=== PATIENT | male | born 1975 | race Two or more races ===

== ENCOUNTER 2016-07-09 18:36 | Emergency (ER) | payer MEDICAID ==
[~2016-07-09] VITALS: Ht 172.7 cm; Wt 101.6 kg
[2016-07-09 19:11] LABS: Basophils # (auto) 0.1 uL; Basophils % (auto) 0.9 % (0.0-2.0); Eosinophils # (auto) 0.3 uL; Eosinophils % (auto) 3.1 % (0.0-7.0); Hematocrit 45.7 % (41.0-53.0); Hemoglobin 15.6 g/dL (13.5-17.5); Lymphocytes # (auto) 2.4 uL; Lymphocytes % (auto) 22.5 % (10.0-50.0); Mean Corpuscular Hgb Conc. 34.1 g/dL (32.0-36.0); Mean Platelet Volume 8.1 fL (7.4-10.4); Monocytes % (auto) 9.2 % (0.0-12.0); Neutrophils # (auto) 6.9 uL; Neutrophils % (auto) 64.3 % (37.0-80.0); Platelet Count (auto) 298 10^3/uL (140-450); Red Cell Distribution Width 12.7 % (11.6-16.0); White Blood Cell 10.8 10^3/uL (4.4-10.8)
[2016-07-09 19:23] LABS: Albumin 3.8 g/dL (3.4-5.0); BUN/Creatinine Ratio 7.5; Calcium 8.5 mg/dL (8.5-10.1); Potassium 3.7 mmol/L (3.5-5.1)
[2016-07-09 19:27] LABS: Bilirubin, Total 0.2 mg/dL (0.2-1.0)
[2016-07-09 23:48] VITALS: BP 118/78
[2016-07-10 00:05] LABS: INR 0.98 (0.9-1.15); Partial Thromboplastin Time 29.1 sec (22.64-33.71); Prothrombin Time 10.1 sec (9.37-12.3)
[2016-07-10 00:12] LABS: Magnesium 2.6 mg/dL (1.6-2.6)
[2016-07-10 00:17] LABS: B-Type Natriuretic Peptide 5.42 pg/mL (0-100)
[2016-07-10 00:31] LABS: Temperature: 22.5 C (20.0-25.0)
== END 2016-07-10 01:55 | disposition home or self-care (01) ==
LOC: ER 18:38
DX: B34.9 Viral infection, unspecified (principal); R53.1 Weakness; R42 Dizziness and giddiness
CPT/HCPCS: 36415; 70450; 71010; 80053; 83735; 83880; 84484; 85025; 85610; 85730; 94761

== ENCOUNTER 2019-09-15 10:09 | Emergency (ER) | payer MEDICAID ==
[~2019-09-15] VITALS: Ht 172.7 cm; Wt 108.9 kg
[2019-09-15 10:24] VITALS: BP 152/90
[2019-09-15 10:36] LABS: Basophils # (auto) 0.1 10 ^3/uL (0-0.2); Eosinophils # (auto) 0.1 10 ^3/uL (0-0.8); Eosinophils % (auto) 0.9 % (0.0-7.0); Hematocrit 45.2 % (41.0-53.0); Hemoglobin 15.5 g/dL (13.5-17.5); Lymphocytes # (auto) 1.1 10 ^3/uL (0.4-5.4); Lymphocytes % (auto) 11.8 % (10.0-50.0); Mean Corpuscular Hemoglobin 29.9 pg (28.0-32.0); Mean Corpuscular Hgb Conc. 34.2 g/dL (32.0-36.0); Mean Corpuscular Volume 87.2 fL (80.0-100.0); Monocytes # (auto) 0.6 10 ^3/uL (0-1.3); Monocytes % (auto) 6.2 % (0.0-12.0); Neutrophils # (auto) 7.8 10 ^3/uL (1.6-8.6); Neutrophils % (auto) 80.1 % (37.0-80.0); Nucleated Red Blood Cells % 0.1 %; Platelet Count (auto) 272 10^3/uL (140-450); Red Blood Cells 5.18 10^6/uL (4.5-5.90); Red Cell Distribution Width 13.7 % (11.8-14.3); White Blood Cell 9.7 10^3/uL (4.4-10.8)
[2019-09-15 10:51] LABS: Albumin 4.5 g/dL (3.4-5.0); Anion Gap 8 (5-15); Blood Urea Nitrogen 11 mg/dL (7-18); Calcium 8.4 mg/dL (8.5-10.1); Carbon Dioxide 29 mmol/L (21-32); Chloride 87 mmol/L (98-107); Glucose 118 mg/dL (74-106); Magnesium 2.7 mg/dL (1.6-2.6); Sodium 124 mmol/L (136-145)
[2019-09-15 10:56] LABS: Alanine Aminotransferase 55 U/L (16-61); Alkaline Phosphatase 93 U/L (45-117); Aspartate Aminotransferase 59 U/L (15-37); BUN/Creatinine Ratio 7.7; Bilirubin, Total 0.5 mg/dL (0.2-1.0); GFR African American 69 mL/min; GFR Non-African American 57 mL/min; Total Protein 9.1 g/dL (6.4-8.2)
== END 2019-09-15 11:48 | disposition home or self-care (01) ==
LOC: ER 10:09
DX: E03.9 Hypothyroidism, unspecified (principal); R53.1 Weakness; R10.9 Unspecified abdominal pain
CPT/HCPCS: 36415; 70450; 71046; 80053; 83735; 84443; 84484; 85025; 93005

== ENCOUNTER 2020-09-29 17:36 | Emergency (ER) | payer MEDICAID ==
[~2020-09-29] VITALS: Ht 172.7 cm; Wt 108.9 kg
[2020-09-29 17:37] VITALS: BP 169/86
[2020-09-29 18:38] LABS: Basophils # (auto) 0.1 10 ^3/uL (0-0.2); Basophils % (auto) 0.9 % (0.0-2.0); Eosinophils # (auto) 0.3 10 ^3/uL (0-0.8); Eosinophils % (auto) 2.2 % (0.0-7.0); Hematocrit 44.4 % (41.0-53.0); Hemoglobin 15.6 g/dL (13.5-17.5); Lymphocytes # (auto) 1.6 10 ^3/uL (0.4-5.4); Lymphocytes % (auto) 12.6 % (10.0-50.0); Mean Corpuscular Hemoglobin 29.9 pg (28.0-32.0); Mean Corpuscular Hgb Conc. 35.1 g/dL (32.0-36.0); Mean Corpuscular Volume 85.2 fL (80.0-100.0); Monocytes % (auto) 7.7 % (0.0-12.0); Neutrophils # (auto) 9.6 10 ^3/uL (1.6-8.6); Neutrophils % (auto) 76.6 % (37.0-80.0); Nucleated Red Blood Cells % 0.2 %; Platelet Count (auto) 251 10^3/uL (140-450); Red Blood Cells 5.21 10^6/uL (4.5-5.90); Red Cell Distribution Width 13.5 % (11.8-14.3); White Blood Cell 12.5 10^3/uL (4.4-10.8)
[2020-09-29 18:54] LABS: Albumin 3.7 g/dL (3.4-5.0); Anion Gap 9 (5-15); BUN/Creatinine Ratio 8.7; Blood Urea Nitrogen 8 mg/dL (7-18); Calcium 8.4 mg/dL (8.5-10.1); Carbon Dioxide 26 mmol/L (21-32); Chloride 102 mmol/L (98-107); GFR African American 114 mL/min; GFR Non-African American 95 mL/min; Glucose 105 mg/dL (74-106); Potassium 3.2 mmol/L (3.5-5.1); Sodium 137 mmol/L (136-145)
[2020-09-29 19:03] LABS: Alanine Aminotransferase 29 U/L (16-61); Alkaline Phosphatase 83 U/L (45-117); Aspartate Aminotransferase 19 U/L (15-37); Bilirubin, Total 0.3 mg/dL (0.2-1.0); Total Protein 7.8 g/dL (6.4-8.2)
== END 2020-09-29 19:30 | disposition left against medical advice (07) ==
LOC: ER 17:38
DX: R07.89 Other chest pain (principal); Z53.21 Procedure and treatment not carried out due to patient leaving prior to being seen by health care provider
CPT/HCPCS: 36415; 71046; 80053; 84484; 85025; 93005

== ENCOUNTER 2023-10-08 09:09 | Inpatient (IN) | payer MEDICAID ==
[~2023-10-08] VITALS: Ht 167.6 cm; Wt 98.5 kg
[2023-10-08 09:36] LABS: Basophils # (auto) 0 10 ^3/uL (0-0.2); Basophils % (auto) 0.4 % (0.0-2.0); Eosinophils # (auto) 0.2 10 ^3/uL (0-0.8); Eosinophils % (auto) 1.9 % (0.0-7.0); Hematocrit 44.3 % (41.0-53.0); Lymphocytes # (auto) 1.4 10 ^3/uL (0.4-5.4); Lymphocytes % (auto) 13.8 % (10.0-50.0); Mean Corpuscular Hemoglobin 29.8 pg (28.0-32.0); Mean Corpuscular Hgb Conc. 33.8 g/dL (32.0-36.0); Monocytes # (auto) 0.8 10 ^3/uL (0-1.3); Monocytes % (auto) 8.1 % (0.0-12.0); Neutrophils # (auto) 7.7 10 ^3/uL (1.6-8.6); Neutrophils % (auto) 75.8 % (37.0-80.0); Red Blood Cells 5.04 10^6/uL (4.5-5.90); Red Cell Distribution Width 13.2 % (11.8-14.3); White Blood Cell 10.2 10^3/uL (4.4-10.8)
[2023-10-08 09:51] LABS: INR 0.94 (0.9-1.15); Partial Thromboplastin Time 26.4 SEC (24.5-34.5)
[2023-10-08 09:53] LABS: Alanine Aminotransferase 65 U/L (7-40); Albumin 4.3 g/dL (3.2-4.8); Alkaline Phosphatase 89 U/L (46-116); Anion Gap 6 (5-15); Aspartate Aminotransferase 84 U/L (13-40); BUN/Creatinine Ratio 18.1 (10.0-20.0); Bilirubin, Total 0.3 mg/dL (0.2-1.0); Blood Urea Nitrogen 17 mg/dL (9-23); Carbon Dioxide 27 mmol/L (20-30); Chloride 109 mmol/L (98-107); Glucose 121 mg/dL (74-106); Potassium 3.8 mmol/L (3.5-5.1); Sodium 142 mmol/L (136-145)
[2023-10-08] MEDS: NITROGLYCERIN 0.4 MG SL TAB SL ONE (10:29)
[2023-10-08] MEDS: ASPirin 325 MG TAB PO ONE (10:37)
[2023-10-08 10:40] LABS: Urine Bacteria None Seen /hpf (None Seen)
[2023-10-08 10:56] LABS: Urine Blood 1+ /uL (Negative); Urine Clarity Clear (Clear); Urine Color Yellow (Yellow); Urine Mucus FEW (None Seen); Urine Protein, UAD Negative (Negative); Urine Urobilinogen Normal (Negative); Urine WBC 1 /hpf (0 - 3)
[2023-10-08 11:53] LABS: Amphetamine Screen, Urine Neg (NEGATIVE)
[2023-10-08 11:54] LABS: Barbiturate Scree,Urine Neg (NEGATIVE); Benzodiazephine Screen, Urine Neg (NEGATIVE); Cannabinoid Screen, Urine Neg (NEGATIVE); Cocaine Screen, Urine Neg (NEGATIVE); Opiate Scree,Urine Neg (NEGATIVE); Phencyclidine Screen, Urine Neg (NEGATIVE)
[2023-10-08] MEDS ORDERED: NITROGLYCERIN 0.4 MG SL TAB SL PRN (12:45)
[2023-10-08] MEDS ORDERED: HYDROcodone-ACET 5/325MG TAB PO PRN (12:45)
[2023-10-08] MEDS ORDERED: ACETAMINOPHEN 325 MG TAB PO PRN ×2 (12:45)
[2023-10-08] MEDS ORDERED: hydrALAZINE HCL 20 MG/ML VL IV PRN (12:45)
[2023-10-08] MEDS ORDERED: MORPHINE SULFATE INJ 2 MG/ml SYRG IV PRN ×2 (12:45)
[2023-10-08] MEDS ORDERED: ONDANSETRON HCL 4 MG/2 ML VIAL IV PRN (12:45)
[2023-10-08] MEDS ORDERED: CARB200T4 PO (12:55)
[2023-10-08] MEDS ORDERED: LEVO75TA6 PO (12:55)
[2023-10-08 13:25] LABS: Triglycerides 97 mg/dL (< 150)
[2023-10-08 13:26] LABS: LDL Cholesterol 120 mg/dL (< 100)
[2023-10-08 13:27] LABS: Cholesterol 190 mg/dL (< 200); HDL Cholesterol 54 mg/dL (40-59)
[2023-10-08] MEDS ORDERED: LORazepam 2MG/ML-1ML VIAL IV PRN (15:30)
[2023-10-08 17:21] VITALS: BP 126/77; PULSE 78; PULSE 90; RESP 16; RESP 18; TEMP 98; O2SAT 96; O2SAT 98
[2023-10-08 17:31] VITALS: BP 126/77; PULSE 90; RESP 16; TEMP 98; O2SAT 96
[2023-10-08] MEDS ORDERED: LORA-483 PO (17:40)
[2023-10-08] MEDS ORDERED: LEVO200T7 PO (17:40)
[2023-10-08 20:00] VITALS: PULSE 84; RESP 16; O2SAT 96
[2023-10-08 21:00] VITALS: BP 137/72; PULSE 84; RESP 16; TEMP 98.1; O2SAT 96
[2023-10-08] MEDS: ATORVASTATIN 20 MG TAB PO SCH (21:23)
[2023-10-08] MEDS ORDERED: carBAMazepine 200 MG TAB PO SCH (22:00)
[2023-10-09 05:00] VITALS: BP 114/67; PULSE 73; RESP 16; TEMP 98.2; O2SAT 99
[2023-10-09 06:37] LABS: Basophils # (auto) 0 10 ^3/uL (0-0.2); Basophils % (auto) 0.6 % (0.0-2.0); Eosinophils # (auto) 0.3 10 ^3/uL (0-0.8); Eosinophils % (auto) 3.7 % (0.0-7.0); Hematocrit 43.3 % (41.0-53.0); Hemoglobin 14.6 g/dL (13.5-17.5); Lymphocytes # (auto) 1.5 10 ^3/uL (0.4-5.4); Lymphocytes % (auto) 18.2 % (10.0-50.0); Mean Corpuscular Hemoglobin 29.5 pg (28.0-32.0); Mean Corpuscular Hgb Conc. 33.7 g/dL (32.0-36.0); Mean Corpuscular Volume 87.6 fL (80.0-100.0); Monocytes # (auto) 0.8 10 ^3/uL (0-1.3); Monocytes % (auto) 10.4 % (0.0-12.0); Neutrophils # (auto) 5.3 10 ^3/uL (1.6-8.6); Neutrophils % (auto) 67.1 % (37.0-80.0); Nucleated Red Blood Cells % 0.1 %; Red Blood Cells 4.94 10^6/uL (4.5-5.90); Red Cell Distribution Width 13.3 % (11.8-14.3)
[2023-10-09 06:59] LABS: Alanine Aminotransferase 87 U/L (7-40); Albumin 4.1 g/dL (3.2-4.8); Alkaline Phosphatase 84 U/L (46-116); Anion Gap 6 (5-15); Aspartate Aminotransferase 50 U/L (13-40); Bilirubin, Total 0.5 mg/dL (0.2-1.0); Blood Urea Nitrogen 11 mg/dL (9-23); Calcium 9.3 mg/dL (8.5-10.1); Carbon Dioxide 28 mmol/L (20-30); Chloride 106 mmol/L (98-107); Glucose 105 mg/dL (74-106); Sodium 140 mmol/L (136-145); Total Protein 6.8 g/dL (5.7-8.2)
[2023-10-09 08:00] VITALS: PULSE 70; PULSE 88; RESP 18; O2SAT 96
[2023-10-09] MEDS: ASPirin 81 mg TAB PO SCH (09:06)
[2023-10-09] MEDS: LEVOTHYROXINE SODIUM 50 MCG TAB PO SCH (09:06)
[2023-10-09 09:21] VITALS: BP 122/76; PULSE 69; RESP 20; TEMP 98.2; O2SAT 98
[2023-10-09 12:24] VITALS: BP 134/74
[2023-10-09 12:45] VITALS: BP 134/80; PULSE 75; RESP 20; TEMP 97.9; O2SAT 94
[2023-10-09] MEDS ORDERED: ATOR20TA50 PO (13:26)
[2023-10-09] MEDS ORDERED: ENAL1TAB42 PO (13:26)
== END 2023-10-09 13:47 | disposition home or self-care (01) | DRG 111 ==
LOC: ER 09:09 → TELE 12:55 → TELE-WESTW 17:21
PROVIDERS: ADMIT Internal Medicine Pulmonary Disease; ATTEND Internal Medicine Pulmonary Disease
DX: H81.10 Benign paroxysmal vertigo, unspecified ear (principal); E03.9 Hypothyroidism, unspecified; I16.0 Hypertensive urgency; E66.01 Morbid (severe) obesity due to excess calories; E78.5 Hyperlipidemia, unspecified; G40.909 Epilepsy, unspecified, not intractable, without status epilepticus; F17.200 Nicotine dependence, unspecified, uncomplicated; J30.2 Other seasonal allergic rhinitis; Z68.35 Body mass index [BMI] 35.0-35.9, adult; Z79.899 Other long term (current) drug therapy; Z79.82 Long term (current) use of aspirin; Z83.3 Family history of diabetes mellitus; Z82.49 Family history of ischemic heart disease and other diseases of the circulatory system
CPT/HCPCS: 36415; 70450; 70551; 71045; 80053; 80061; 80307; 81001; 83036; 83735; 83880; 84443; 84484; 85025; 85610; 85730; 93005; 93306; 93886; G0378